=== PATIENT | male | born 2000 | race Asian ===

== ENCOUNTER 2018-03-10 23:34 | Emergency (ER) | payer OTHER ==
[~2018-03-10] VITALS: Ht 180.3 cm; Wt 92.1 kg
[~2018-03-10 23:34] MED LIST: LISI10TA11 PO
[2018-03-10 23:43] VITALS: BP 131/92; TEMP 98.1
== END 2018-03-11 00:33 | disposition home or self-care (01) ==
LOC: ED 23:34
PROC: 0HQFXZZ Repair Right Hand Skin, External Approach (ICD-10-PCS; principal; 2018-03-10)
DX: S61.011A Laceration without foreign body of right thumb without damage to nail, initial encounter (principal); W26.0XXA Contact with knife, initial encounter; Y92.511 Restaurant or cafe as the place of occurrence of the external cause
CPT/HCPCS: 99283

== ENCOUNTER 2019-05-05 15:14 | Emergency (ER) | payer OTHER ==
[~2019-05-05] VITALS: Ht 180.3 cm; Wt 86.2 kg
[2019-05-05 15:20] VITALS: TEMP 98.1
[2019-05-05 16:12] LABS: PLATELET COUNT 233 K/uL (142-355)
[2019-05-05 16:15] LABS: POTASSIUM 3.9 mmol/L (3.6-5.2)
[2019-05-05 17:45] VITALS: BP 118/68
== END 2019-05-05 17:45 | disposition home or self-care (01) ==
LOC: ED 15:14
PROVIDERS: Emergency Medicine Emergency Medical Services
DX: R53.81 Other malaise (principal)
CPT/HCPCS: 36415; 80053; 80307; 81000; 84443; 85027; 86140; 96360; 96375; 99284; J1885